=== PATIENT | male | born 1960 | race Two or more races ===

== ENCOUNTER 2024-11-07 12:03 | Emergency (ER) | payer SELFPAY ==
[~2024-11-07] VITALS: Ht 177.8 cm; Wt 90.0 kg
[2024-11-07 12:09] VITALS: O2SAT 99
[2024-11-07 12:43] LABS: BASOPHILS % 0.6 % (0.0-2.0); EOSINOPHILS % 0.6 % (0.0-5.0); HEMATOCRIT. 45.0 % (42.0-52.0); HEMOGLOBIN. 15.1 g/dL (14.0-18.0); LYMPHOCYTES % 22.0 % (20.0-50.0); MEAN PLATELET VOLUME 9.4 fl (7.4-10.4); MONOCYTES % 3.7 % (2.0-8.0); NEUTROPHILS % 73.1 % (40.0-76.0); PLATELET 180 x1000/uL (130-400); RED BLOOD CELL COUNT 5.00 mill/uL (4.7-6.1); RED CELL DISTRIBUTION WIDTH 13.4 % (11.6-14.6)
[2024-11-07 13:06] LABS: CREATININE 1.1 mg/dL (0.6-1.3)
[2024-11-07 13:07] LABS: TROPONIN I HIGH SENSITIVITY 6 ng/L (3.0-53); UREA NITROGEN BLOOD 12 mg/dL (9-23)
[2024-11-07 13:08] LABS: ASPARTATE AMINOTRANSFERASE 25 IU/L (<34)
[2024-11-07 13:09] LABS: BILIRUBIN DIRECT 0.2 mg/dL (<=3.0); BILIRUBIN TOTAL 0.6 mg/dL (0.1-1.0); PROTEIN TOTAL 7.5 g/dL (6.0-8.3)
[2024-11-07 13:21] LABS: INR 1.0
[2024-11-07 15:15] LABS: TROPONIN I HIGH SENSITIVITY 6 ng/L (3.0-53)
[2024-11-07 15:20] VITALS: BP 141/63; PULSE 71; RESP 16; TEMP 37.3; O2SAT 99
== END 2024-11-07 15:25 | disposition left against medical advice (07) ==
LOC: ER 12:03 → EDBEDREQ 12:29 → ENRESERV 14:44 → ER 15:25 → CANBEDREQ 15:34
DX: R07.89 Other chest pain (principal); E11.65 Type 2 diabetes mellitus with hyperglycemia; F41.9 Anxiety disorder, unspecified; I25.2 Old myocardial infarction; I87.1 Compression of vein; J45.909 Unspecified asthma, uncomplicated; Z79.899 Other long term (current) drug therapy
CPT/HCPCS: 36415; 71045; 80048; 80076; 83880; 84484; 85025; 85379; 93005; 93970; 99285